=== PATIENT | male | born 1975 | race Caucasian/White ===

== ENCOUNTER 2017-02-04 21:56 | Emergency (ER) | payer OTHER ==
--- NOTE | ~2017-02-04 | ER ---
PATIENT'S NAME: ELIAZAR WOODRUFF [facility] AGE: 41 Y [address] ROOM: [place] [address] LOCATION: [facility] ADMIT DATE: 02/04/2017 ER/Outpatient Report DISCHARGE DATE: 02/04/2017 FAMILY PHYSICIAN: Riaz Cruz MD ATTENDING PHYSICIAN: David Hale Time of Arrival: 2156 hours. Time of Evaluation: 2210 hours. CHIEF COMPLAINT: Index finger laceration. HISTORY OF PRESENT ILLNESS: This is a 41-year-old male who presents to the ER, who states that he was using a utility knife yesterday around 5 o'clock and he avulsed a big chunk of his skin off the tip of his finger. 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 He states he did put a dressing on it last night. He went to change it, and the dressing pulled off some of the scab, and it started bleeding again tonight. He states he thought that he better get it checked out this evening. He is up to date on his tetanus shot. He denies any other problems at this time. ALLERGIES: NO KNOWN ALLERGIES. MEDICATIONS: None. PAST MEDICAL HISTORY: Negative. PAST SURGICAL HISTORY: Appendectomy, left index finger partial amputation. SOCIAL HISTORY: Denies smoking, drug, or alcohol use. REVIEW OF SYSTEMS: CONSTITUTIONAL: Denies any change in weight or fatigue. MUSCULOSKELETAL: No weakness or myalgias. HEMATOLOGIC: No easy bruising or bleeding. SKIN: He has an avulsion laceration to his left index finger. PHYSICAL EXAMINATION: PATIENT'S NAME: ELIAZAR WOODRUFF [facility] AGE: 41 Y [address] ROOM: [place], [place] [address] LOCATION: [facility] ADMIT DATE: 02/04/2017 ER/Outpatient Report DISCHARGE DATE: 02/04/2017 FAMILY PHYSICIAN: Riaz Cruz MD ATTENDING PHYSICIAN: David Hale VITAL SIGNS: Height 6 feet 1 inch stated, weight 111.9 kg taken, blood pressure is 134/78, pulse 70, respirations 16, temperature 98 degrees tympanically, saturations 94% on room air. Bucky Coma Score is 15. GENERAL: Alert, calm, well-developed, 41-year-old, in no acute distress. EXTREMITIES: No clubbing or cyanosis. He has full range of motion of all limbs. SKIN: He has a 2 cm skin avulsion to the distal aspect of his left index finger. LABORATORY DATA AND X-RAYS: None were done. IMPRESSION: Skin avulsion to the distal aspect of left index finger. ASSESSMENT AND PLAN: I did give the patient reassurance. We did cleanse the site with normal saline and placed a nonstick bandage to the finger. We will dismiss him to home with a wound care handout. He may use Tylenol or ibuprofen as needed and follow up with his primary care physician as needed. The patient and his understand and agree with care. VU LIPSCOMB PA-C FOR MD MAYA JARAMILLO/libby /[id number] d: 02/05/17 0019 t: 02/15/17 0844, OUTPATIENT REPORT
== END 2017-02-04 22:16 | disposition disaster alternative care site (69) ==
LOC: GACC 21:56
DX: S61.211A Laceration without foreign body of left index finger without damage to nail, initial encounter (principal); Z90.49 Acquired absence of other specified parts of digestive tract; W26.0XXA Contact with knife, initial encounter